=== PATIENT | male | born 1965 | race African-American/Black ===

== ENCOUNTER → 2016-07-15 | Outpatient (CLI) | payer OTHER ==
[2015-09-05 17:56] VITALS: BP 122/82
[2016-07-15 18:03] LABS: BASOPHILS # (AUTO) 0.1 X10^3/uL (0.0-0.1); BASOPHILS % (AUTO) 1.2 % (0.2-1.0); EOSINOPHILS # (AUTO) 0.3 x10^3/uL (0.0-0.2); EOSINOPHILS % (AUTO) 3.8 % (0.9-2.9); HEMATOCRIT 41.5 % (42.0-54.0); LYMPHOCYTES # (AUTO) 3.1 X10^3/uL (1.3-2.9); LYMPHOCYTES % (AUTO) 40.7 % (21.0-51.0); MEAN CORPUSCULAR HGB CONC 33.7 g/dL (33.0-35.0); MEAN CORPUSCULAR VOLUME 86.1 fL (80.0-100.0); MEAN PLATELET VOLUME 9.6 fL (7.4-11.0); MONOCYTES # (AUTO) 0.4 x10^3/uL (0.3-0.8); NEUTROPHILS # (AUTO) 3.7 x10^3/uL (2.2-4.8); NEUTROPHILS % (AUTO) 49.3 % (42.0-75.0); PLATELET COUNT 149 X10^3/uL (150.0-450.0); RED BLOOD COUNT 4.82 X10^6/uL (4.7-6.0)
[2016-07-15 18:18] LABS: HEMOGLOBIN A1C 9.7 % (4.5-6.2)
--- NOTE | 2016-07-15 18:22 | VAS ---
HISTORY: Leg pain and swelling Study: Venous Doppler study of the left leg. Comparison: None TECHNIQUE: Multiple cheung scale and color flow Doppler images of the deep venous system were obtaine d of the left lower extremity. FINDINGS: The deep venous system of the left lower extremity was evaluated from the level of the common femora l vein through the popliteal vein. Normal color flow and augmentation can be observed. In addition , normal compression is seen throughout the deep venous system. IMPRESSION: Negative for DVT. Reported By:
[2016-07-15 18:28] LABS: PLATELET MORPHOLOGY COMMENT NORMAL (NORMAL); WHITE BLOOD COUNT 7.6 X10^3/uL (3.6-10.0)
[2016-07-15 18:32] LABS: ALANINE AMINOTRANSFERASE 35 Units/L (12-78); ALBUMIN 3.3 g/dL (3.4-5.0); ALKALINE PHOSPHATASE 120 Units/L (46-116); BLOOD UREA NITROGEN 10 mg/dL (7-18); CALCIUM 9.1 mg/dL (8.5-10.1); CARBON DIOXIDE 27.5 mmol/L (21-32); CHLORIDE 106 mmol/L (98-107); COR CA(FOR HYPOALB) 9.7 mg/dL (8.5-10.1); COR NA(FOR HYPERGLY) 144 mmol/L (136-145); CREATININE 1.17 mg/dL (0.70-1.30); GLUCOSE 208 mg/dL (65-99); SODIUM 141 mmol/L (136-145); TOTAL PROTEIN 8.1 g/dL (6.4-8.2); eGFR BLACK RACES > 60 (>60); eGFR NON BLACK RACES > 60 (>60)
[2016-07-15 18:34] LABS: ASPARTATE AMINO TRANSFERASE 36 Units/L (15-37)
[2016-07-15 18:44] LABS: CREATININE,URINE 312.25 mg/dL (40-278); MICROALBUMIN,URINE 76.5 mg/L
== END ==
LOC: LAB 17:23
PROVIDERS: ATTEND Internal Medicine
DX: I10 Essential (primary) hypertension (principal); E11.9 Type 2 diabetes mellitus without complications; E78.4 Other hyperlipidemia; M79.662 Pain in left lower leg; M79.89 Other specified soft tissue disorders
CPT/HCPCS: 36415; 80053; 82043; 83036; 85025; 93971

== ENCOUNTER 2016-07-26 17:40 | Emergency (ER) | payer OTHER ==
[2016-07-26 17:58] VITALS: BP 109/74; BMI 30.1
--- NOTE | 2016-07-26 19:01 | DR.GENAD ---
HPI - PCP Primary Care Physician: vinnie - Complaint/Symptoms Chief Complaint Doctors Comments: patient admits to pain in left shoulder of three duration, had problmes with left lower extremity. He diabetic neuropathy according to him and the medication he can not afford. Chief Complaint:: patient stated he had surgery 03-28-16 in [place], and he started hurting about a week ago on his left side. - Source History Provided: Patient - Mode of Arrival Mode of Arrival: Ambulatory - Timing Onset of Chief Complaint: 07/19/16 PMH - PMH Past Medical History: Yes Past Medical History: Diabetes, Hypertension, [place] Past Surgical History: Yes Surgical History: Angioplasty/Stents - Family History History of Family Medical Conditions: Yes Family Medical History: Diabetes Mellitus, [place] - Social History Does patient currently use any type of tobacco product: Yes Have you used tobacco products in the last 12 months: Yes Type of Tobacco Use: Cigarettes How many years tobacco product used: 30 Does any household member use tobacco: No Alcohol Use: None Do you use any recreational Drugs:: No Lives With: Family Lives Where: Home - infectious screening In the last 2 months have you had wt loss of >10#?: NO Have you had fever, night sweats or hemotysis?: No Have you traveled outside the country in the last 6 months?: No Isolation: Standard ROS - Review of Systems Constitutional: No Symptoms Reported Eyes: No Symptoms Reported ENTM: No Symptoms Reported Respiratoy: No Symptoms Reported Cardiovascular: No Symptoms Reported Gastrointestinal/Abdominal: No Symptoms Reported Genitourinary: No Symptoms Reported Neurological: No Symptoms Reported Musculoskeletal: No Symptoms Reported Integumentary: No Symptoms Reported Hematologic/Lymphatic: No Symptoms Reported Endocrine: No Symptoms Reported Psychiatric: No Symptoms Reported All Other Systems: Reviewed and Negative PE - Vital Signs Vitals: Temperature 98.4 F Pulse Rate 94 Respiratory Rate 16 Blood Pressure [Right Arm] 104/63 Blood Pressure 109/74 O2 Sat by Pulse Oximetry 100 - General Limitations: No Limitations General Appearance: Alert, In No Apparent Distress - Head Head Exam: Normal Inspection, Atraumatic - Eyes Eye exam: Normal Appearance, PERRL, EOMI - ENT ENT Exam: Normal Exam External Ear Exam: Normal External Inspection TM/Canal Exam: Bilateral Normal Nose Exam: Normal Nose Exam Mouth Exam: Normal Inspection Throat Exam: Normal Inspection - Neck Neck Exam: Normal Inspection - Chest Chest Inspection: Normal Inspection - Respiratory Respiratory Exam: Normal Lung Sounds Bilat Respiratory Exam: Bilateral Clear to Auscultation - Cardiovascular Cardiovascular Exam: Regular Rate - Abdominal Exam Abdominal Exam: Normal Inspection Abdominal Tenderness: negative: RUQ, RLQ, LUQ, LLQ, Epigastrium, Suprapubic, Diffuse, Mild, Moderate, Severe, Other - Extremities Extremities Exam: Normal Inspection, Full ROM - Back Back Exam: Normal Inspection - Neurologic Neurological Exam: Alert, Oriented X3, CN II-XII Intact - Psychiatric Psychiatric Exam: Normal Affect - Skin Skin Exam: Warm, Dry, Intact ROR - XRAY XRAY Interpreted by: Radiologist (Neck: Cervical fusion w/o abnormality) - Diagnosis Discharge Problem: Diabetic neuropathy Qualifiers: Diabetes mellitus type: type 2 Diabetes mellitus complication detail: diabetic polyneuropathy Qualified Code(s): E11.42 - Type 2 diabetes mellitus with diabetic polyneuropathy - Discharge Plan Condition: Stable - Follow ups/Referrals Follow ups/Referrals: Omar Capps [Primary Care Provider] - 3 days - Instructions
[2016-07-26] MEDS ORDERED: TORADOL 60 MG VIAL IM ONE (21:02)
[2016-07-26] MEDS ORDERED: TORADOL 60 MG VIAL ONE (21:03)
--- NOTE | 2016-07-26 21:08 | RAD ---
EXAM: Cervical spine x-ray INDICATION: Neck pain COMPARISION: No priors available for comparison TECHNIQUE: AP, lateral, and odontoid, three views FINDINGS: There is anterior plate and screw fusion of C5 through C7. There is normal alignment of the cervical spine. The disc and vertebral body heights are preserved. The facets are intact. The soft tissues a re normal. IMPRESSION: Cervical fusion noted. No acute abnormality. Reported By:
== END 2016-07-26 21:21 | disposition home or self-care (01) ==
LOC: ER 18:01
DX: E11.42 Type 2 diabetes mellitus with diabetic polyneuropathy (principal)
CPT/HCPCS: 72040; 96372; 99282; 99283; J1885

== ENCOUNTER 2017-08-07 13:46 | Observation (INO) ==
[2017-08-07 15:13] VITALS: BMI 28.0
[2017-08-07 16:59] LABS: CKMB % 1.4 % (<4); CREATINE KINASE 73 Units/L (39-308); CREATINE KINASE MB < 1.0 ng/mL (0-4.0); TROPONIN I < 0.02 ng/mL (0-1.5)
[2017-08-07] MEDS: HumuLIN R SC PRN ×2 (17:29→21:04)
[2017-08-07] MEDS: NICOTINE PATCH TD SCH (17:29)
[2017-08-07 19:29] LABS: CKMB % 1.5 % (<4); CREATINE KINASE 65 Units/L (39-308); CREATINE KINASE MB < 1.0 ng/mL (0-4.0); TROPONIN I < 0.02 ng/mL (0-1.5)
--- NOTE | 2017-08-07 20:10 | DR.H&P ---
H&P - History & Physical for Day of: H&P Date: 08/07/17 - Chief Complaint Chief Complaint: CHEST PAIN - Allergies Allergies/Adverse Reactions: Allergies Allergy/AdvReac Type Severity Reaction Status Date / Time No Known Drug Allergies Allergy Verified 08/07/17 15:22 - History of Present Illness History of Present Illness: IS A 51 YEAR OLD PATIENT OF OURS WHO PRESENTED THE HOSPITAL A DIRECT ADMISSION FROM [facility] FOR CHEST PAIN, RULE OUT ACUTE [place]. HE REPORTED THAT PAIN STARTED APPROXIMATELY ONE WEEK AGO AND HAS PROGRESSIVELY GOTTEN WORSE. HE PRESENTED TO THE [facility] ER WHERE LABS WERE DRAWN. CARDIAC ENZYMES AND EKGS WERE WITHIN NORMAL LIMITS. BLOOD PRESSURE WAS NOTED TO BE ELEVATED AT 195/113. NITROGLYCERINE WAS GIVEN. NO IMPROVEMENT IN CHEST PAIN NOTED, BUT BLOOD PRESSURE DID DECREASE TO 128/80. PATIENT REQUESTED TRANSFER TO [facility] WHERE WE WOULD MANAGE HIS CARE. WE ACCEPTED CARE OF PATIENT. PATIENT WAS TRANSFERRED HERE VIA EMS. HE ARRIVED IN STABLE CONDITION. ON ARRIVAL, VITALS WERE NOTED TO BE 97.3-71-20-98%- 121/70. WE REPEATED CARDIAC ENZYMES AND EKG. CARDIAC ENZYMES WITHIN NORMAL LIMITS. EKG REVEALED SINUS RHYTHM WITH HR 64. GLUCOSE WAS NOTED TO BE 25. WE WILL MONITOR SERIAL CARDIAC ENZYMES AND EKG. WE WILL ALSO MONITOR OTBS AND START PATIENT ON A HUMULIN R SLIDING SCALE. OTHERWISE, WE WILL FOLLOW UP WITH AM LABS AND CHEST XRAY AND CONTINUE TO MONITOR PATIENT. - Past Medical History Past Medical History: Depression, Diabetes, Dyslipidemia, GERD, Hypertension, MS - Past Surgical History Surgical History: Angioplasty/Stents, Ortho Surgery - Family History Family Medical History: Diabetes Mellitus, Cancer, MS, Coronary Artery Disease, Hypertension - Social History Does patient currently use any type of tobacco product: Yes Have you used tobacco products in the last 12 months: Yes Type of Tobacco Use: Cigarettes How many years tobacco product used: 31 Does any household member use tobacco: No Alcohol Use: Occasionally Drug Use: None - Medications Home Medications: Aspirin [ASPIRIN 325 MG *] 1 tab PO DAILY 08/07/17 [History Confirmed 08/07/17] Atenolol [Atenolol] 1 tab PO DAILY 08/07/17 [History Confirmed 08/07/17] Clopidogrel Bisulfate [PLAVIX TAB 75 MG *] 1 tab PO DAILY 08/07/17 [History Confirmed 08/07/17] Quetiapine Fumarate [Quetiapine Fumarate] 1 tab PO HS 08/07/17 [History Confirmed 08/07/17] RX: Glimepiride [AMARYL 4 MG *] 1 tab PO BID 08/07/17 [History Confirmed ] RX: Lidocaine Oint 5% [XYLOCAINE OINT 5 %] 1 applic .ROUTE QID PRN 08/07/17 [ History Confirmed 08/07/17] RX: Ranitidine HCl 1 tab PO HS 08/07/17 [History Confirmed 08/07/17] RX: Sertraline HCl [ZOLOFT 100 MG *] 1 tab PO DAILY 08/07/17 [History Confirmed 08/07/17] Simvastatin [Simvastatin] 1 tab PO HS 08/07/17 [History Confirmed 08/07/17] - Review of Systems Constitutional: No Symptoms Reported Eyes: No Symptoms Reported ENT: No Symptoms Reported Respiratory: Shortness of Breath. denies: Cough, Sputum, Wheezing Cardiovascular: Chest Pain. denies: Edema Gastrointestinal: No Symptoms Reported Genitourinary: No Symptoms Reported Musculoskeletal: No Symptoms Reported Skin: No Symptoms Reported Neurological: No Symptoms Reported - Physical Exam Vital Signs: Temperature 97.9 F Pulse Rate [Right Brachial] 66 Respiratory Rate 20 Blood Pressure [Right Arm] 143/82 Blood Pressure 109/74 O2 Sat by Pulse Oximetry 100 Oriented: Normal Eyes: Normal Ear: Normal Nose: Normal Throat: Normal Respiratory: Clear Throughout Cardiovascular: Normal. negative: S3, S4, Murmur : Normal Auscultation: Bowel Sounds: Normal Palpation: Normal Tenderness: Normal Skin: Normal Musculoskeletal: Normal Psychiatric: Normal Mood Description: Calm Affect: Normal Speech Pattern: Clear - Assessment/Plan (1) Chest pain, rule out acute myocardial infarction Status: Acute Plan: ADMIT, TELEMETRY, SERIAL CARDIAC ENZYMES AND EKG, SUPPLEMENTAL OXYGEN, CONTINUE TO MONITOR
[2017-08-07] MEDS: NORCO 5/325 MG TAB PO PRN (21:04)
[2017-08-07 23:16] LABS: CKMB % 1.4 % (<4); CREATINE KINASE 70 Units/L (39-308); CREATINE KINASE MB < 1.0 ng/mL (0-4.0); TROPONIN I < 0.02 ng/mL (0-1.5)
[2017-08-08] MEDS: NICOTINE PATCH TD SCH (09:00)
--- NOTE | 2017-08-08 09:59 | RAD ---
History: Chest pain Study: Chest one view Findings: An AP upright chest view shows the cardiac silhouette to be within normal limits for techni que. The pulmonary vasculature is mildly congested. No pneumonia is seen. There is some linear opacity in the right base which may reflect atelectasis or scar. Minimal similar opacity is seen within the lingula Impression: 1. No CHF or pneumonia with mild vascular congestion. 2. Right lower lobe atelectasis versus scar. 3. Minimal lingular atelectasis versus scar Reported By:
[2017-08-08] MEDS: HumuLIN R SC PRN ×3 (12:00→21:22)
[2017-08-08 14:09] LABS: ALANINE AMINOTRANSFERASE 14 Units/L (12-78); ALBUMIN 2.8 g/dL (3.4-5.0); ALKALINE PHOSPHATASE 123 Units/L (46-116); ASPARTATE AMINO TRANSFERASE 8 Units/L (15-37); BLOOD UREA NITROGEN 8 mg/dL (7-18); CHLORIDE 105 mmol/L (98-107); CHOLESTEROL 157 mg/dL (0-200); COR NA(FOR HYPERGLY) 142 mmol/L (136-145); CREATININE 0.91 mg/dL (0.70-1.30); HDL CHOLESTEROL 39 mg/dL (40-60); MAGNESIUM 1.3 mg/dL (1.7-2.9); SODIUM 139 mmol/L (136-145); TOTAL PROTEIN 6.9 g/dL (6.4-8.2); TRIGLYCERIDES 57 mg/dL (0-150); eGFR NON BLACK RACES > 60 (>60)
[2017-08-08 14:10] LABS: BASOPHILS # (AUTO) 0.1 X10^3/uL (0.0-0.1); BASOPHILS % (AUTO) 0.7 % (0.2-1.0); EOSINOPHILS # (AUTO) 0.4 x10^3/uL (0.0-0.2); EOSINOPHILS % (AUTO) 4.4 % (0.9-2.9); HEMATOCRIT 42.6 % (42.0-54.0); HEMOGLOBIN 14.6 g/dL (13.5-18.0); LYMPHOCYTES # (AUTO) 3.2 X10^3/uL (1.3-2.9); MEAN CORPUSCULAR HEMOGLOBIN 30.4 pg (27.0-34.0); MEAN CORPUSCULAR HGB CONC 34.2 g/dL (33.0-35.0); MEAN CORPUSCULAR VOLUME 88.7 fL (80.0-100.0); MEAN PLATELET VOLUME 10.5 fL (7.4-11.0); MONOCYTES # (AUTO) 0.4 x10^3/uL (0.3-0.8); NEUTROPHILS # (AUTO) 4.5 x10^3/uL (2.2-4.8); NEUTROPHILS % (AUTO) 52.9 % (42.0-75.0); PLATELET COUNT 199 X10^3/uL (150.0-450.0); RED CELL DISTRIBUTION WIDTH 13.7 % (11.6-16.5); WHITE BLOOD COUNT 8.6 X10^3/uL (3.6-10.0)
--- NOTE | 2017-08-08 15:51 | VAS ---
HISTORY: 51-year-old male with chest pain and hypertension. Study: Duplex carotid Doppler. Comparison: None. Technique: Multiple cheung scale and color flow Doppler images of the right and left carotid arterial s ystem were obtained. The vertebral arterial system was evaluated as well. Findings: Normal color flow Doppler is seen throughout the right and left carotid arterial system. All PSV les s than 125 centimeter/second. No hemodynamically significant stenosis is seen based on velocity crite gal. The right and left vertebral arteries demonstrate antegrade flow. Right ICA/CCA ratio 1.08. Left ICA/CCA ratio 0.95. IMPRESSION: 1. No hemodynamically significant stenosis based on velocity criteria. Reported By:
[2017-08-08] MEDS ORDERED: SNACK - Diabetic Appropriate PO SCH (20:00)
[2017-08-08] MEDS ORDERED: ZANTAC PO SCH (21:00)
[2017-08-08] MEDS ORDERED: ZOCOR TAB 40 MG PO SCH (21:00)
[2017-08-08] MEDS: NORCO 5/325 MG TAB PO PRN (21:18)
[2017-08-08] MEDS: PLAVIX PO SCH (21:20)
[2017-08-08] MEDS: TENORMIN PO SCH (21:21)
[2017-08-09] MEDS: HumuLIN R SC PRN (05:31)
[2017-08-09] MEDS ORDERED: AMARYL TAB 4 MG PO SCH (07:00)
[2017-08-09] MEDS ORDERED: ZOLOFT PO SCH (09:00)
[2017-08-09] MEDS ORDERED: ASPIRIN PO SCH (09:00)
[2017-08-09] MEDS ORDERED: ZOLOFT PO ONE (09:02)
[2017-08-09] MEDS: NICOTINE PATCH TD SCH (09:05)
[2017-08-09] MEDS: TENORMIN PO SCH (09:06)
[2017-08-09] MEDS: NORCO 5/325 MG TAB PO PRN (09:08)
[2017-08-09 09:27] VITALS: BP 151/93
[2017-08-09] MEDS: PLAVIX PO SCH (09:45)
--- NOTE | 2017-08-10 18:04 | PCM.PROG ---
Progress Note - Progress Note for Day of Date: 08/08/17 - Subjective Subjective: WAS ADMITTED FOR CHEST PAIN, RULE OUT MYOCARDIAL INFARCTION. TODAY, HE IS ALERT AND ORIENED, LYING IN BED ON MORNING ROUNDS. HE CONTINUES WITH INTERMITTENT CHEST PAIN AND SHORTNESS OF BREATH AT TIMES. ON EXAMINATION, HEART IS REGULAR IN RATE AND RHYTHM. BILATERAL LUNGS ARE CLEAR TO AUSCULTATION. ABDOMEN IS ROUND, SOFT, AND NON-TENDER WITH NORMAL BOWEL SOUNDS NOTED IN ALL QUADRANTS. HIS VITALS THIS MORNING ARE 98.0-68-20-99%-147/89. LABS WERE OBTAINED. ABNORMAL LAB VALUES INCLUDE THE FOLLOWING: GLUCOSE 232, CALCIUM 8.0, AST 8, ALK PHOS 123, ALBUMIN 2.8, LDL 107, HDL 39. CARDIAC ENZYMES AND EKG WITHIN NORMAL LIMITS. CHEST XRAY REVEALS RIGHT LOWER LOBE ATELECTASIS VERSUS SCAR. MINIMAL LINGUILAR ATELECTASUS VERSUS SCAR. TODAY, WE WILL OBTAIN A CAROTID DOPPLER. OTHERWISE, WE WILL FOLLOW UP WITH AM LABS AND CONTINUE TO MONITOR PATIENT. - Past Medical Family Social History Past Med/Fam/Surg Hx: No changes since H&P Allergies: Allergies No Known Drug Allergies Allergy (Verified 08/07/17 15:22) - Review of Systems ROS: No change since H&P - Vital Signs and I&O's Vital Signs: Temperature 97.8 F Pulse Rate [Right Brachial] 71 Respiratory Rate 18 Blood Pressure [Left Arm] 151/93 Blood Pressure [Right Arm] 126/68 Blood Pressure 109/74 O2 Sat by Pulse Oximetry 96 Intake and Output: Intake & Output 08/08/17 08/09/17 08/10/17 08/11/17 11:59 11:59 11:59 11:59 Intake Total 240 / 240 1100 / 1100 Balance 240 / 240 1100 / 1100 - Physical Exam Oriented: Normal Eyes: Normal Ear: Normal Nose: Normal Throat: Normal Respiratory: Normal Cardiovascular: Normal. negative: S3, S4, Murmur : Normal Auscultation: Bowel Sounds: Normal Palpation: Normal Tenderness: Normal Skin: Normal Musculoskeletal: Normal Psychiatric: Normal Mood Description: Calm Affect: Normal Speech Pattern: Clear, Appropriate - Laboratory and Diagnostics Result Diagrams: 08/08/17 04:17 08/08/17 04:17 Labs: Laboratory WBC 8.6 X10^3/uL (3.6-10.0) 08/08/17 04:17 RBC 4.80 X10^6/uL (4.7-6.0) 08/08/17 04:17 Hgb 14.6 g/dL (13.5-18.0) 08/08/17 04:17 Hct 42.6 % (42.0-54.0) 08/08/17 04:17 MCV 88.7 fL (80.0-100.0) 08/08/17 04:17 MCH 30.4 pg (27.0-34.0) 08/08/17 04:17 MCHC 34.2 g/dL (33.0-35.0) 08/08/17 04:17 RDW 13.7 % (11.6-16.5) 08/08/17 04:17 Plt Count 199 X10^3/uL (150.0-450.0) 08/08/17 04:17 MPV 10.5 fL (7.4-11.0) 08/08/17 04:17 Neut % (Auto) 52.9 % (42.0-75.0) 08/08/17 04:17 Lymph % (Auto) 37.0 % (21.0-51.0) 08/08/17 04:17 [place] % (Auto) 5.0 % (0.0-13.0) 08/08/17 04:17 Eos % (Auto) 4.4 % (0.9-2.9) H 08/08/17 04:17 Baso % (Auto) 0.7 % (0.2-1.0) 08/08/17 04:17 Neut # (Auto) 4.5 x10^3/uL (2.2-4.8) 08/08/17 04:17 Lymph # (Auto) 3.2 X10^3/uL (1.3-2.9) H 08/08/17 04:17 [place] # (Auto) 0.4 x10^3/uL (0.3-0.8) 08/08/17 04:17 Eos # (Auto) 0.4 x10^3/uL (0.0-0.2) H 08/08/17 04:17 Baso # (Auto) 0.1 X10^3/uL (0.0-0.1) 08/08/17 04:17 Absolute Nucleated RBC 0.3 /100WBC 08/08/17 04:17 INR Target Range - 08/08/17 04:17 INR 0.95 (0.8-1.3) 08/08/17 04:17 APTT 29.2 SECONDS (22.9-36.5) 08/08/17 04:17 PTT Comment - 08/08/17 04:17 Sodium 139 mmol/L (136-145) 08/08/17 04:17 Corrected Sodium 142 mmol/L (136-145) 08/08/17 04:17 Potassium 4.0 mmol/L (3.5-5.1) 08/08/17 04:17 Chloride 105 mmol/L (98-107) 08/08/17 04:17 Carbon Dioxide 27.0 mmol/L (21-32) 08/08/17 04:17 BUN 8 mg/dL (7-18) 08/08/17 04:17 Creatinine 0.91 mg/dL (0.70-1.30) 08/08/17 04:17 Est GFR (MDRD) Af Amer > 60 (>60) 08/08/17 04:17 Est GFR (MDRD) Non-Af > 60 (>60) 08/08/17 04:17 Glucose 232 mg/dL (65-99) H 08/08/17 04:17 POC Glucose (mg/dL) 200 mg/dL (65-99) H 08/08/17 17:30 Calcium 8.0 mg/dL (8.5-10.1) L 08/08/17 04:17 Corrected Calcium 9.0 mg/dL (8.5-10.1) 08/08/17 04:17 Magnesium 1.3 mg/dL (1.7-2.9) L 08/08/17 04:17 Total Bilirubin 0.50 mg/dL (0.2-1.0) 08/08/17 04:17 AST 8 Units/L (15-37) L 08/08/17 04:17 ALT 14 Units/L (12-78) 08/08/17 04:17 Alkaline Phosphatase 123 Units/L (46-116) H 08/08/17 04:17 Creatine Kinase 70 Units/L (39-308) 08/07/17 22:45 CK-MB (CK-2) < 1.0 ng/mL (0-4.0) 08/07/17 22:45 CK/CKMB % Calc 1.4 % (<4) 08/07/17 22:45 Troponin I < 0.02 ng/mL (0-1.5) 08/07/17 22:45 Total Protein 6.9 g/dL (6.4-8.2) 08/08/17 04:17 Albumin 2.8 g/dL (3.4-5.0) L 08/08/17 04:17 Globulin 4.1 g/dL (2.5-4.5) 08/08/17 04:17 Albumin/Globulin Ratio 0.7 Ratio (1.1-2.1) L 08/08/17 04:17 Triglycerides 57 mg/dL (0-150) 08/08/17 04:17 Cholesterol 157 mg/dL (0-200) 08/08/17 04:17 LDL Cholesterol, Calc 107 mg/dL (0-100) H 08/08/17 04:17 HDL Cholesterol 39 mg/dL (40-60) L 08/08/17 04:17 Cholesterol/HDL Ratio 4.0 (0.0-5.0) 08/08/17 04:17 - Plan (1) Chest pain, rule out acute myocardial infarction Status: Acute Plan: TELEMETRY, OBTAIN CAROTID DOPPLER, SUPPLEMENTAL OXYGEN, CONTINUE TO MONITOR
--- NOTE | 2017-08-11 23:30 | DR.CARTERD ---
- Discharge Summary for: Discharge Summary for Date of:: 08/09/17 - Admission Date Date of Admission: 08/07/17 - Admission Diagnoses Admission Diagnosis: (1) Chest pain, rule out acute myocardial infarction (2) Hypertension - Discharge Date Discharge Date: 08/09/17 - Discharge Diagnoses Discharge Diagnosis: (1) Chest pain, rule out acute myocardial infarction (2) Hypertension - Hospital Course Hospital Course: ON DAY ONE, MR. GARCIA IS A 51 YEAR OLD PATIENT OF OURS WHO PRESENTED THE HOSPITAL A DIRECT ADMISSION FROM [facility] ER FOR CHEST PAIN, RULE OUT ACUTE [place]. HE REPORTED THAT PAIN STARTED APPROXIMATELY ONE WEEK PRIOR AND HAD PROGRESSIVELY WORSENED. HE PRESENTED TO THE [facility] ER WHERE LABS WERE DRAWN. CARDIAC ENZYMES AND EKGS WERE WITHIN NORMAL LIMITS. BLOOD PRESSURE WAS NOTED TO BE ELEVATED AT 195/113. NITROGLYCERINE WAS GIVEN. NO IMPROVEMENT IN CHEST PAIN NOTED, BUT BLOOD PRESSURE DID DECREASE TO 128/80. PATIENT REQUESTED TRANSFER TO [facility] WHERE WE WOULD MANAGE HIS CARE. WE ACCEPTED CARE OF PATIENT. PATIENT WAS TRANSFERRED HERE VIA EMS. HE ARRIVED IN STABLE CONDITION. ON ARRIVAL, VITALS WERE NOTED TO BE 97.3-71-20-98%-121/70. WE REPEATED CARDIAC ENZYMES AND EKG. CARDIAC ENZYMES WITHIN NORMAL LIMITS. EKG REVEALED SINUS RHYTHM WITH HR 64. GLUCOSE WAS NOTED TO BE 25. WE MONITORED SERIAL CARDIAC ENZYMES AND EKG. WE WILL ALSO MONITORED OTBS AND STARTED PATIENT ON A HUMULIN R SLIDING SCALE. ON DAY TWO, PATIENT WAS ALERT AND ORIENTED, LYING IN BED ON MORNING ROUNDS. HE CONTINUED WITH INTERMITTENT CHEST PAIN AND SHORTNESS OF BREATH AT TIMES. ON EXAMINATION, HEART WAS REGULAR IN RATE AND RHYTHM. BILATERAL LUNGS WERE CLEAR TO AUSCULTATION. ABDOMEN WAS ROUND, SOFT, AND NON-TENDER WITH NORMAL BOWEL SOUNDS NOTED IN ALL QUADRANTS. HIS VITALS WERE 98.0-68-20-99%-147/89. LABS WERE OBTAINED. ABNORMAL LAB VALUES INCLUDED THE FOLLOWING: GLUCOSE 232, CALCIUM 8.0, AST 8, ALK PHOS 123, ALBUMIN 2.8, LDL 107, HDL 39. CARDIAC ENZYMES AND EKG WITHIN NORMAL LIMITS. CHEST XRAY REVEALED RIGHT LOWER LOBE ATELECTASIS VERSUS SCAR. MINIMAL LINGUILAR ATELECTASUS VERSUS SCAR. WE CONTINUED TO MONITOR PATIENT. ON DAY THREE, WE OBTAINED A CAROTID DOPPLER AND IT REPORTED NO HEMODYNAMICALLY SIGNIFICANT STENOSIS BASED ON VELOCITY CRITERIA. PATIENT DENIED CHEST PAIN OR SHORTNESS OF BREATH. BLOOD PRESSURE WAS 151/93. PATIENT REPORTED HE WAS FEELING BETTER AND WAS READY TO GO HOME. VITAL SIGNS STABLE, AFEBRILE. LABS WNL. WE PLANNED FOR DISCHARGE. INSTRUCTIONS FOR MEDICATIONS AND FOLLOW UP WERE DISCUSSED WITH PATIENT AND FAMILY, BOTH VOICED UNDERSTANDING. PATIENT DISCHARGED HOME IN STABLE CONDITION WITH FAMILY. - Discharge Medications Discharge Medications: aripiprazole 1 tab PO HS 08/07/17 [History] aspirin 1 tab PO DAILY 08/07/17 [History] atenolol 1 tab PO DAILY 08/07/17 [History] clopidogrel [PLAVIX TAB 75 MG *] 1 tab PO DAILY 08/07/17 [History] colchicine 1 tab PO BID 08/07/17 [History] glimepiride 1 tab PO BID 08/07/17 [History] lidocaine 1 applic .ROUTE QID PRN 08/07/17 [History] lubiprostone [Amitiza] 1 tab PO DAILY 08/07/17 [History] lurasidone [Latuda] 1 tab PO DAILY 08/07/17 [History] oxycodone 1 tab PO Q6HR PRN 08/07/17 [History] quetiapine 1 tab PO HS 08/07/17 [History] ranitidine HCl 1 tab PO HS 08/07/17 [History] sertraline 1 tab PO DAILY 08/07/17 [History] simvastatin 1 tab PO HS 08/07/17 [History] - Discharge Disposition Discharge Disposition: PATIENT IS TO FOLLOW UP IN OUR OFFICE IN ONE WEEK.
== END 2017-08-09 10:55 | disposition home or self-care (01) ==
LOC: UNDOADMOB 13:46 → MED/SURG 13:46
PROVIDERS: ADMIT Internal Medicine; ATTEND Internal Medicine
DX: R07.89 Other chest pain; Z79.899 Other long term (current) drug therapy; I10 Essential (primary) hypertension; R10.84 Generalized abdominal pain
CPT/HCPCS: 36415; 71010; 71045; 80053; 80061; 82550; 82553; 83735; 84484; 85025; 85610; 85730; 93005; 93880; 94760; A4216; G0378; J1815

== ENCOUNTER 2017-11-13 16:19 | Inpatient (IN) ==
[2017-11-13] MEDS ORDERED: HumuLIN R SUBCUT PRN (19:46)
[2017-11-13] MEDS: NS 1000 ML 1,000 ML IV SCH ×2 (20:10→22:19)
[2017-11-13 20:12] LABS: BASOPHILS # (AUTO) 0.1 X10^3/uL (0.0-0.1); BASOPHILS % (AUTO) 0.9 % (0.2-1.0); EOSINOPHILS # (AUTO) 0.2 x10^3/uL (0.0-0.2); EOSINOPHILS % (AUTO) 4.6 % (0.9-2.9); HEMATOCRIT 40.9 % (42.0-54.0); HEMOGLOBIN 14.2 g/dL (13.5-18.0); LYMPHOCYTES # (AUTO) 2.4 X10^3/uL (1.3-2.9); LYMPHOCYTES % (AUTO) 45.4 % (21.0-51.0); MEAN CORPUSCULAR HEMOGLOBIN 30.9 pg (27.0-34.0); MEAN CORPUSCULAR HGB CONC 34.6 g/dL (33.0-35.0); MEAN CORPUSCULAR VOLUME 89.5 fL (80.0-100.0); MONOCYTES # (AUTO) 0.4 x10^3/uL (0.3-0.8); MONOCYTES % (AUTO) 7.8 % (0.0-13.0); NEUTROPHILS # (AUTO) 2.2 x10^3/uL (2.2-4.8); NEUTROPHILS % (AUTO) 41.3 % (42.0-75.0); PLATELET COUNT 214 X10^3/uL (150.0-450.0); RED BLOOD COUNT 4.57 X10^6/uL (4.7-6.0); RED CELL DISTRIBUTION WIDTH 14.3 % (11.6-16.5); WHITE BLOOD COUNT 5.3 X10^3/uL (3.6-10.0)
[2017-11-13 20:21] VITALS: BMI 28.0
[2017-11-13 20:27] LABS: ALBUMIN 3.2 g/dL (3.4-5.0); ALKALINE PHOSPHATASE 112 Units/L (46-116); AMYLASE 210 Units/L (25-115); ASPARTATE AMINO TRANSFERASE 20 Units/L (15-37); BLOOD UREA NITROGEN 11 mg/dL (7-18); CALCIUM 8.7 mg/dL (8.5-10.1); CHLORIDE 104 mmol/L (98-107); COR CA(FOR HYPOALB) 9.3 mg/dL (8.5-10.1); COR NA(FOR HYPERGLY) 139 mmol/L (136-145); CREATININE 1.17 mg/dL (0.70-1.30); LIPASE 1387 Units/L (73-393); SODIUM 138 mmol/L (136-145); eGFR NON BLACK RACES > 60 (>60)
[2017-11-13 20:43] LABS: ALANINE AMINOTRANSFERASE 21 Units/L (12-78); TOTAL PROTEIN 7.3 g/dL (6.4-8.2)
[2017-11-13] MEDS: NICOTINE PATCH TD SCH (21:00)
[2017-11-14] MEDS: MORPHINE SULFATE INJ 4 MG IVP PRN ×4 (00:03→17:35)
[2017-11-14 05:15] LABS: BILIRUBIN,URINE NEGATIVE (NEGATIVE); BLOOD/HEMOGLOBIN,URINE 1+ (NEGATIVE); GLUCOSE, URINE NEGATIVE (NEGATIVE); KETONES,URINE NEGATIVE (NEGATIVE); LEUKOCYTE ESTERASE ,URINE NEGATIVE (NEGATIVE); NITRITES,URINE NEGATIVE (NEGATIVE); PROTEIN,URINE 2+ (NEGATIVE); UROBILINOGEN,URINE NORMAL (NORMAL)
[2017-11-14 05:41] LABS: APPEARANCE,URINE CLEAR (CLEAR); COLOR,URINE YELLOW (YELLOW)
[2017-11-14 05:50] LABS: BACTERIA,URINE NEGATIVE /HPF (NEGATIVE); MUCUS,URINE MODERATE /HPF (NEGATIVE); RBC,URINE 0-2 /HPF (NONE SEEN); SQUAMOUS EPITHELIAL CELL,UR FEW /HPF (NEGATIVE)
[2017-11-14 06:15] LABS: ALANINE AMINOTRANSFERASE 20 Units/L (12-78); ALBUMIN 2.7 g/dL (3.4-5.0); ALKALINE PHOSPHATASE 97 Units/L (46-116); AMYLASE 186 Units/L (25-115); ASPARTATE AMINO TRANSFERASE 19 Units/L (15-37); BLOOD UREA NITROGEN 8 mg/dL (7-18); CALCIUM 8.2 mg/dL (8.5-10.1); CARBON DIOXIDE 28.4 mmol/L (21-32); CHLORIDE 107 mmol/L (98-107); COR CA(FOR HYPOALB) 9.2 mg/dL (8.5-10.1); CREATININE 1.01 mg/dL (0.70-1.30); LIPASE 1067 Units/L (73-393); SODIUM 141 mmol/L (136-145); TOTAL PROTEIN 6.4 g/dL (6.4-8.2); eGFR NON BLACK RACES > 60 (>60)
[2017-11-14 06:22] LABS: BASOPHILS % (AUTO) 0.4 % (0.2-1.0); EOSINOPHILS # (AUTO) 0.3 x10^3/uL (0.0-0.2); EOSINOPHILS % (AUTO) 5.2 % (0.9-2.9); HEMATOCRIT 37.6 % (42.0-54.0); HEMOGLOBIN 13.1 g/dL (13.5-18.0); LYMPHOCYTES # (AUTO) 3.1 X10^3/uL (1.3-2.9); LYMPHOCYTES % (AUTO) 52.2 % (21.0-51.0); MEAN CORPUSCULAR HGB CONC 34.7 g/dL (33.0-35.0); MEAN CORPUSCULAR VOLUME 89.3 fL (80.0-100.0); MEAN PLATELET VOLUME 9.3 fL (7.4-11.0); MONOCYTES # (AUTO) 0.5 x10^3/uL (0.3-0.8); MONOCYTES % (AUTO) 8.2 % (0.0-13.0); PLATELET COUNT 214 X10^3/uL (150.0-450.0); RED BLOOD COUNT 4.21 X10^6/uL (4.7-6.0); RED CELL DISTRIBUTION WIDTH 13.8 % (11.6-16.5)
[2017-11-14] MEDS ORDERED: POTASSIUM CHL 60 MEQ/NS 0.45% 500 ML IV PRN (06:31)
[2017-11-14] MEDS ORDERED: POTASSIUM CHL 40 MEQ/NS 0.45% 500 ML IV PRN (06:31)
[2017-11-14] MEDS ORDERED: K-LYTE EFFERVESCENT PO PRN (06:31)
[2017-11-14] MEDS ORDERED: POTASSIUM CHLORIDE LIQ 20 MEQ UDC PO PRN (06:31)
[2017-11-14] MEDS ORDERED: K-RIDER 10 MEQ/NS 100 ML 10 MEQ/100 ML BAG IV PRN (06:31)
[2017-11-14] MEDS: NICOTINE PATCH TD SCH (08:40)
[2017-11-14] MEDS: MAGNESIUM SULFATE 1 GRAM/100 mL PREMIX 1 GM/100 ML BAG IV PRN ×5 (08:41→16:50)
[2017-11-14] MEDS ORDERED: PREVNAR 13 IM ONE (10:00)
[2017-11-14] MEDS ORDERED: PREPARATION H OINT RECTAL PRN (11:24)
[2017-11-14] MEDS ORDERED: NS 100 ML IV 100 ML IV ONE (11:43)
--- NOTE | 2017-11-14 13:29 | CT ---
CT OF THE ABDOMEN AND PELVIS WITH CONTRAST HISTORY: Abdominal pain. Elevated lipase. Comparison: None Technique: Multiple axial images of the abdomen and pelvis were obtained from the lung bases to the pubic symphy sis follow the administration of IV contrast as well as oral contrast. Dose reduction techniques inc luding Automated Exposure Control (AEC) and adjustment of mA and kV were utlized. Findings: The heart is normal in size. There is no pericardial effusion. Lung bases are clear without focal con solidation, pleural effusion or pneumothorax. Liver and spleen are normal in size, enhancement characteristics and contour. No focal lesions. The p ortal vein is patent. No ductal dilitation. Gallbladder is present. No calcified gallstones or gallbl adder wall thickening. The pancreas is unremarkable. Adrenal glands are normal. Kidneys enhance symme trically without hydronephrosis or nephrolithiasis. No bowel obstruction or inflammation. Normal appendix. No abnormal appearing mesenteric or retroperit puckett lymph nodes. No free fluid or fluid collections. Fat containing umbilical hernia. The bladder is normal in appearance. Prostate not enlarged. No free fluid or abnormal pelvic lymph no janusz. No aggressive osseous lesions. IMPRESSION: 1. Normal appearing pancreas. It should be noted the setting of elevated lipase that Clinical pancre atitis may preced imaging findings. Reported By:
--- NOTE | 2017-11-14 13:53 | PCM.PROG ---
Progress Note - Progress Note for Day of Date of Exam: 11/14/17 - Subjective Subjective: 52 BM DIRECT ADMIT ONE DAY AGO WITH CO ABDOMINAL PAIN, PT IS AFEBRILE THIS AM WBC 6.0, CT ABD PELVIS ORDERED FOR THIS AM. PT CURRENTLY NPO. PT CONTINUES WITH CO MID ABDOMINAL PAIN, DENIES N/V THIS AM, CONTINUE WITH AM LABS, AMYLASE LIPASE LEVELS, NPO STATUS - Past Medical Family Social History Past Med/Fam/Surg Hx: No changes since H&P Allergies: Allergies No Known Drug Allergies Allergy (Verified 08/07/17 15:22) - Review of Systems ROS: No change since H&P - Vital Signs and I&O's Vital Signs: Temperature 97.5 F Pulse Rate [Right Brachial] 59 Respiratory Rate 18 Blood Pressure [Left Arm] 151/93 Blood Pressure [Right Arm] 153/90 Blood Pressure 151/93 O2 Sat by Pulse Oximetry 96 Intake and Output: Intake & Output 11/12/17 11/13/17 11/14/17 11/15/17 11:59 11:59 11:59 11:59 Intake Total 988 / 988 Balance 988 / 988 - Physical Exam Oriented: Normal Eyes: Normal, Other (WEARS GLASSES) Ear: Normal Nose: Normal Throat: Normal Respiratory: Diminished Cardiovascular: Normal : Normal Auscultation: Bowel Sounds: Normal Palpation: Other (REDUCILBE UMBILICAL HERNIA) Tenderness: Periumbilical, Mild Skin: Normal Musculoskeletal: Back:Lumbar Psychiatric: Normal Mood Description: Calm Speech Pattern: Clear, Appropriate - Laboratory and Diagnostics Result Diagrams: 11/14/17 05:30 11/14/17 05:30 Labs: Laboratory WBC 6.0 X10^3/uL (3.6-10.0) 11/14/17 05:30 RBC 4.21 X10^6/uL (4.7-6.0) L 11/14/17 05:30 Hgb 13.1 g/dL (13.5-18.0) L 11/14/17 05:30 Hct 37.6 % (42.0-54.0) L 11/14/17 05:30 MCV 89.3 fL (80.0-100.0) 11/14/17 05:30 MCH 31.0 pg (27.0-34.0) 11/14/17 05:30 MCHC 34.7 g/dL (33.0-35.0) 11/14/17 05:30 RDW 13.8 % (11.6-16.5) 11/14/17 05:30 Plt Count 214 X10^3/uL (150.0-450.0) 11/14/17 05:30 MPV 9.3 fL (7.4-11.0) 11/14/17 05:30 Neut % (Auto) 34.0 % (42.0-75.0) L 11/14/17 05:30 Lymph % (Auto) 52.2 % (21.0-51.0) H 11/14/17 05:30 [place] % (Auto) 8.2 % (0.0-13.0) 11/14/17 05:30 Eos % (Auto) 5.2 % (0.9-2.9) H 11/14/17 05:30 Baso % (Auto) 0.4 % (0.2-1.0) 11/14/17 05:30 Neut # (Auto) 2.0 x10^3/uL (2.2-4.8) L 11/14/17 05:30 Lymph # (Auto) 3.1 X10^3/uL (1.3-2.9) H 11/14/17 05:30 [place] # (Auto) 0.5 x10^3/uL (0.3-0.8) 11/14/17 05:30 Eos # (Auto) 0.3 x10^3/uL (0.0-0.2) H 11/14/17 05:30 Baso # (Auto) 0.0 X10^3/uL (0.0-0.1) 11/14/17 05:30 Absolute Nucleated RBC 0.0 /100WBC 11/14/17 05:30 Sodium 141 mmol/L (136-145) 11/14/17 05:30 Corrected Sodium TNP 11/14/17 05:30 Potassium 3.6 mmol/L (3.5-5.1) 11/14/17 05:30 Chloride 107 mmol/L (98-107) 11/14/17 05:30 Carbon Dioxide 28.4 mmol/L (21-32) 11/14/17 05:30 BUN 8 mg/dL (7-18) 11/14/17 05:30 Creatinine 1.01 mg/dL (0.70-1.30) 11/14/17 05:30 Est GFR (MDRD) Af Amer > 60 (>60) 11/14/17 05:30 Est GFR (MDRD) Non-Af > 60 (>60) 11/14/17 05:30 Glucose 100 mg/dL (65-99) H 11/14/17 05:30 POC Glucose (mg/dL) 122 mg/dL (65-99) H 11/14/17 11:11 Calcium 8.2 mg/dL (8.5-10.1) L 11/14/17 05:30 Corrected Calcium 9.2 mg/dL (8.5-10.1) 11/14/17 05:30 Magnesium 1.1 mg/dL (1.7-2.9) L 11/14/17 05:30 Total Bilirubin 0.60 mg/dL (0.2-1.0) 11/14/17 05:30 AST 19 Units/L (15-37) 11/14/17 05:30 ALT 20 Units/L (12-78) 11/14/17 05:30 Alkaline Phosphatase 97 Units/L (46-116) 11/14/17 05:30 Total Protein 6.4 g/dL (6.4-8.2) 11/14/17 05:30 Albumin 2.7 g/dL (3.4-5.0) L 11/14/17 05:30 Globulin 3.7 g/dL (2.5-4.5) 11/14/17 05:30 Albumin/Globulin Ratio 0.7 Ratio (1.1-2.1) L 11/14/17 05:30 Amylase 186 Units/L (25-115) H 11/14/17 05:30 Lipase 1067 Units/L (73-393) H 11/14/17 05:30 Specimen Type Clean catch urine 11/14/17 03:47 Urine Color Yellow (YELLOW) 11/14/17 03:47 Urine Appearance Clear (CLEAR) 11/14/17 03:47 Urine pH 5.0 (5.0 - 8.0) 11/14/17 03:47 Ur Specific [place] 1.025 (1.000-1.030) 11/14/17 03:47 Urine Protein 2+ (NEGATIVE) 11/14/17 03:47 Urine Glucose (UA) Negative (NEGATIVE) 11/14/17 03:47 Urine Ketones Negative (NEGATIVE) 11/14/17 03:47 Urine Occult Blood 1+ (NEGATIVE) 11/14/17 03:47 Urine Nitrite Negative (NEGATIVE) 11/14/17 03:47 Urine Bilirubin Negative (NEGATIVE) 11/14/17 03:47 Urine Urobilinogen Normal (NORMAL) 11/14/17 03:47 Ur Leukocyte Esterase Negative (NEGATIVE) 11/14/17 03:47 Urine RBC 0-2 /HPF (NONE SEEN) 11/14/17 03:47 Urine WBC 0-2 /HPF (NONE SEEN) 11/14/17 03:47 Ur Squamous Epith Cells Few /HPF (NEGATIVE) 11/14/17 03:47 Urine Bacteria Negative /HPF (NEGATIVE) 11/14/17 03:47 Urine Mucus Moderate /HPF (NEGATIVE) 11/14/17 03:47 Ur Culture Indicated? No/not indicated 11/14/17 03:47 H. pylori IgG Antibody Negative (NEGATIVE) 11/13/17 20:00 - Plan (1) Abdominal pain Status: Acute Plan: NPO FOR CT ABD PELVIS THIS AM. BP AND BLOOD SUGAR CONTROL. WILL CONTINUE NPO UNTIL PAIN, NAUSEA IMPROVED AND IMPROVED AMYLASE AND LIPASE. REPEAT AM LABS, AMYLASE AND LIPASE. GENTLE IV HYDRATION (2) Pancreatitis Status: Acute (3) CAD (coronary artery disease) Status: Acute (4) Hypertension Status: Acute (5) DM (diabetes mellitus) Status: Acute
[2017-11-14] MEDS: NS 1000 ML 1,000 ML IV SCH (17:37)
[2017-11-14] MEDS: ZANTAC PO SCH (20:44)
[2017-11-14] MEDS: ABILIFY PO SCH (21:09)
[2017-11-15] MEDS: NS 1000 ML 1,000 ML IV SCH ×5 (04:41→20:25)
[2017-11-15] MEDS: MORPHINE SULFATE INJ 4 MG IVP PRN ×4 (04:43→20:27)
[2017-11-15 05:44] LABS: BASOPHILS % (AUTO) 0.6 % (0.2-1.0); EOSINOPHILS # (AUTO) 0.3 x10^3/uL (0.0-0.2); EOSINOPHILS % (AUTO) 6.4 % (0.9-2.9); HEMATOCRIT 39.4 % (42.0-54.0); HEMOGLOBIN 13.7 g/dL (13.5-18.0); LYMPHOCYTES # (AUTO) 2.5 X10^3/uL (1.3-2.9); LYMPHOCYTES % (AUTO) 49.4 % (21.0-51.0); MEAN CORPUSCULAR HEMOGLOBIN 30.9 pg (27.0-34.0); MEAN CORPUSCULAR HGB CONC 34.7 g/dL (33.0-35.0); MEAN CORPUSCULAR VOLUME 89.1 fL (80.0-100.0); MEAN PLATELET VOLUME 9.5 fL (7.4-11.0); MONOCYTES # (AUTO) 0.3 x10^3/uL (0.3-0.8); NEUTROPHILS # (AUTO) 1.9 x10^3/uL (2.2-4.8); NEUTROPHILS % (AUTO) 37.6 % (42.0-75.0); PLATELET COUNT 215 X10^3/uL (150.0-450.0); RED BLOOD COUNT 4.42 X10^6/uL (4.7-6.0); WHITE BLOOD COUNT 5.1 X10^3/uL (3.6-10.0)
[2017-11-15 06:16] LABS: ALANINE AMINOTRANSFERASE 24 Units/L (12-78); ALBUMIN 2.7 g/dL (3.4-5.0); ALKALINE PHOSPHATASE 98 Units/L (46-116); ASPARTATE AMINO TRANSFERASE 19 Units/L (15-37); BLOOD UREA NITROGEN 5 mg/dL (7-18); CALCIUM 8.1 mg/dL (8.5-10.1); CARBON DIOXIDE 27.9 mmol/L (21-32); CHLORIDE 108 mmol/L (98-107); COR CA(FOR HYPOALB) 9.1 mg/dL (8.5-10.1); CREATININE 1.03 mg/dL (0.70-1.30); SODIUM 142 mmol/L (136-145); TOTAL PROTEIN 6.5 g/dL (6.4-8.2); eGFR NON BLACK RACES > 60 (>60)
[2017-11-15] MEDS ORDERED: ZOLOFT PO ONE (08:19)
[2017-11-15] MEDS: TENORMIN PO SCH (08:42)
[2017-11-15] MEDS: LURASIDONE PO SCH (08:42)
[2017-11-15] MEDS: ZOLOFT PO SCH (08:42)
[2017-11-15] MEDS: PLAVIX PO SCH (08:43)
[2017-11-15] MEDS: NICOTINE PATCH TD SCH (09:15)
[2017-11-15] MEDS ORDERED: ECOTRIN TAB 325 MG PO ONE (09:43)
[2017-11-15] MEDS: ASPIRIN PO SCH (10:03)
[2017-11-15 11:01] LABS: AMYLASE 110 Units/L (25-115); LIPASE 263 Units/L (73-393)
[2017-11-15] MEDS: ABILIFY PO SCH ×2 (20:26→20:29)
[2017-11-15] MEDS: ZANTAC PO SCH (20:27)
[2017-11-16] MEDS: NS 1000 ML 1,000 ML IV SCH ×2 (04:17→11:47)
[2017-11-16 05:46] LABS: BASOPHILS % (AUTO) 0.4 % (0.2-1.0); EOSINOPHILS # (AUTO) 0.3 x10^3/uL (0.0-0.2); EOSINOPHILS % (AUTO) 5.8 % (0.9-2.9); HEMATOCRIT 38.8 % (42.0-54.0); HEMOGLOBIN 13.3 g/dL (13.5-18.0); LYMPHOCYTES # (AUTO) 2.3 X10^3/uL (1.3-2.9); LYMPHOCYTES % (AUTO) 46.8 % (21.0-51.0); MEAN CORPUSCULAR HEMOGLOBIN 30.7 pg (27.0-34.0); MEAN CORPUSCULAR HGB CONC 34.3 g/dL (33.0-35.0); MEAN CORPUSCULAR VOLUME 89.6 fL (80.0-100.0); MEAN PLATELET VOLUME 9.4 fL (7.4-11.0); MONOCYTES # (AUTO) 0.4 x10^3/uL (0.3-0.8); MONOCYTES % (AUTO) 8.4 % (0.0-13.0); NEUTROPHILS # (AUTO) 1.9 x10^3/uL (2.2-4.8); NEUTROPHILS % (AUTO) 38.6 % (42.0-75.0); PLATELET COUNT 219 X10^3/uL (150.0-450.0); RED BLOOD COUNT 4.33 X10^6/uL (4.7-6.0); RED CELL DISTRIBUTION WIDTH 13.8 % (11.6-16.5)
[2017-11-16 05:57] LABS: ALANINE AMINOTRANSFERASE 22 Units/L (12-78); ALBUMIN 2.7 g/dL (3.4-5.0); ALKALINE PHOSPHATASE 112 Units/L (46-116); ASPARTATE AMINO TRANSFERASE 13 Units/L (15-37); BLOOD UREA NITROGEN 6 mg/dL (7-18); CALCIUM 8.4 mg/dL (8.5-10.1); CARBON DIOXIDE 26.6 mmol/L (21-32); CHLORIDE 106 mmol/L (98-107); COR CA(FOR HYPOALB) 9.4 mg/dL (8.5-10.1); COR NA(FOR HYPERGLY) 142 mmol/L (136-145); CREATININE 1.02 mg/dL (0.70-1.30); SODIUM 139 mmol/L (136-145); TOTAL PROTEIN 6.4 g/dL (6.4-8.2); eGFR NON BLACK RACES > 60 (>60)
[2017-11-16] MEDS ORDERED: ZOLOFT PO ONE (08:27)
[2017-11-16] MEDS: PLAVIX PO SCH (08:44)
[2017-11-16] MEDS: ASPIRIN PO SCH (08:44)
[2017-11-16] MEDS: TENORMIN PO SCH (08:45)
[2017-11-16] MEDS: ZOLOFT PO SCH (08:45)
[2017-11-16] MEDS: LURASIDONE PO SCH (08:45)
[2017-11-16] MEDS: NICOTINE PATCH TD SCH (08:52)
[2017-11-16] MEDS ORDERED: NORVASC TAB 5 MG PO ONE (09:19)
[2017-11-16] MEDS: MORPHINE SULFATE INJ 4 MG IVP PRN (09:46)
[2017-11-16] MEDS ORDERED: CATAPRES TAB 0.1 MG PO ONE (10:43)
[2017-11-16] MEDS ORDERED: CATAPRES TAB 0.1 MG ONE (10:45)
[2017-11-16 11:55] VITALS: BP 162/86
--- NOTE | 2018-02-22 20:38 | DR.UPDATE ---
H&P Update History and Physical Update: WAS SEEN IN THE OFFICE TODAY. A H&P WAS COMPLETED PRIOR TO ADMISSION. PATIENT HAS BEEN SEEN AND EXAMINED WITH NO CHANGES NOTED TO H&P. Changes noted: NO Yes with the following:
== END 2017-11-16 12:00 | disposition home or self-care (01) | DRG 440 ==
LOC: MED/SURG
PROVIDERS: ADMIT Internal Medicine; ATTEND Internal Medicine
DX: K42.9 Umbilical hernia without obstruction or gangrene; K85.90 Acute pancreatitis without necrosis or infection, unspecified; E11.65 Type 2 diabetes mellitus with hyperglycemia; R10.84 Generalized abdominal pain; R26.89 Other abnormalities of gait and mobility; I25.10 Atherosclerotic heart disease of native coronary artery without angina pectoris; I10 Essential (primary) hypertension
CPT/HCPCS: 36415; 74177; 80053; 81001; 82150; 83690; 83735; 85025; 86677; 97162; 97165; A4216; A4222; 90670; G0378; J0400; J1815; J2270; J3475; J7030; J7050; J8499